=== PATIENT | male | born 1940 | race Caucasian/White ===

== ENCOUNTER 2021-01-11 02:06 | Inpatient (IN) | payer MEDICARE, SELFPAY ==
[2021-01-11] VITALS (34 sets, daily range): BP systolic 79–149; BP diastolic 42–84; PULSE 63–92; RESP 16–22; TEMP 35.7–36.6; O2SAT 91–100; BMI 46.0
--- NOTE | ~2021-01-11 | CT_ITS ---
EXAMINATION: CT chest abdomen wo con EXAM DATE: 01/12/2021 10:15 INDICATION: Hemoptysis and hematemesis. TECHNIQUE: Spiral CT of the chest and abdomen was performed without contrast. Axial, coronal and sa gittal images chest and abdomen were reviewed. Coronal maximum intensity pixel images of chest revie wed. The dose-length product (DLP) for this examination was 1328.02 mGy-cm. The exposure was tailor ed according to patient size (auto mA exposure control), and iterative reconstruction (ASIR) was used as additional dose reduction technique. There is no prior study for comparison. FINDINGS: CHEST: The interventricular septum is perceptible, suggesting patient is anemic. Linear by basilar subsegmental atelectasis. There are no pleural or pericardial effusions. Tracheobronchial tree is patent. There is no mediastinal, hilar or axillary lymphadenopathy. There is no pneumothorax. H eart normal in size. Probable left anterior descending coronary artery stent. ABDOMEN: There is left liver lobe lateral segmental fluid density lesion measuring 2.1 cm, probably c yst The liver, spleen, adrenal glands and pancreas are unremarkable. Probable poorly calcified chol elithiasis versus gallbladder debris. There is absent right kidney. Left kidney is unremarkable. T here is no retroperitoneal lymphadenopathy. There is mild scattered arteriosclerotic disease. The appendix is normal. There is mild to moderate descending colonic colonic diverticulosis. There i s no adjacent inflammatory change to suggest diverticulitis. The stomach and small bowel are unremar kable. There is expected amount of colonic stool. No free intraperitoneal gas. There are no oste oblastic or osteolytic lesions identified. IMPRESSION: 1. Linear by basilar atelectasis. 2. Possible cholelithiasis. 3. Mild to moderate descending colonic diverticulosis. Reviewed, dictated and finalized at location B.
--- NOTE | ~2021-01-11 | XR_ITS ---
XR chest 1V portable DATE: 01/11/2021 03:30 INDICATION: Syncope TECHNIQUE: Portable AP chest on 01/11/2021 at 0324 hours COMPARISON: 05/25/2013 PA and lateral chest FINDINGS: There is mild infiltrate or atelectasis at the lung bases. Normal heart size. Mild aortic unfolding. Pulmonary vascularity appears within upper limits of normal . No pleural effusion or pneumothorax. Diffuse osteopenia. Diffuse idiopathic skeletal hyperostosis of the thoracic spine. IMPRESSION: Mild infiltrate or atelectasis at the lung bases Reviewed, dictated and finalized at location A.
--- NOTE | ~2021-01-11 | XR_ITS ---
XR abdomen NG/feed tube insert DATE: 01/11/2021 10:55 INDICATION: NG tube placement TECHNIQUE: Portable AP views on 01/11/2021 at 1043 and 1044 hours COMPARISON: None FINDINGS: NG tube extends approximately 13 x 5 cm into the body of the in stomach IMPRESSION: . NG tube in body of stomach Reviewed, dictated and finalized at Location A. Reviewed, dictated and finalized at location A.
[2021-01-11 02:47] LABS: Basophils Absolute Auto 0.1 K/mm3 (0.0-0.1); Basophils Percent Auto 0.6 % (0.2-1.2); Eosinophils Absolute Auto 0.1 K/mm3 (0-0.3); Eosinophils Percent Auto 1.4 % (0-4.4); Hematocrit 31.2 % (42.0-52.0); Hemoglobin 10.1 g/dL (14.0-18.0); Immature Granulocyte Absolute 0.02 K/mm3 (0.00-0.031); Immature Granulocyte Percent A 0.2 % (0-0.5); Lymphocytes Absolute Auto 1.99 K/mm3 (0.9-3.2); Lymphocytes Percent Auto 24.7 % (18.3-44.2); Mean Corpuscular HGB Conc 32.4 g/dl (32-36); Mean Corpuscular Hemoglobin 33.8 pg (26-34); Mean Corpuscular Volume 104.3 fl (80-100); Mean Platelet Volume 11.1 fl (7.4-10.4); Monocytes Absolute Auto 0.6 K/mm3 (0.1-0.6); Monocytes Percent Auto 7.8 % (2.6-8.5); Neutrophils Absolute Auto 5.3 K/mm3 (1.3-6.7); Neutrophils Percent Auto 65.3 % (45.5-73.1); Platelet Count Result 197 k/mm3 (150-375); Red Blood Count 2.99 M/mm3 (4.6-6.20); Red Cell Distribution Width 12.6 % (11.5-14.5); White Blood Count 8.1 K/mm3 (4.5-10.0)
--- NOTE | 2021-01-11 02:51 | PC.NURSE ---
Patient had another episode of vomiting. Approx 200ml of dark bloody emesis.
[2021-01-11 02:59] LABS: Alanine Aminotransferase 21 U/L (4-50); Albumin Level 3.7 g/dL (3.5-5.1); Alkaline Phosphatase 52 U/L (38-126); Anion Gap 10 mmol/L (8-16); Aspartate Amino Transferase 27 U/L (17-59); Bilirubin,Total 0.6 mg/dL (0.2-1.3); Blood Urea Nitrogen 46 mg/dL (9-20); Calcium 8.9 mg/dL (8.4-10.2); Carbon Dioxide 27 mmol/L (22-30); Chloride 101 mmol/L (98-107); Estimated CRCL calculation 79 ml/min; Estimated Glomerular Filt Rate > 60; Glucose 120 mg/dL (65-110); Potassium 4.5 mmol/L (3.4-5.0); Sodium 138 mmol/L (137-145)
[2021-01-11 03:13] LABS: Prothrombin Time 13.4 Seconds (11.1-14.7)
--- NOTE | 2021-01-11 03:16 | ECG_ITS ---
Measurements Intervals [place] Rate: 61 P: 5 AK: 152 QRS: 23 QRSD: 94 T: 47 QT: 402 QTc: 405 Interpretive Statements SINUS RHYTHM DELAYED PRECORDIAL R/S TRANSITION LOW QRS VOLTAGE IN PRECORDIAL LEADS BASELINE ARTIFACT- I, III, AVL BORDERLINE ECG Electronically Signed On 01-11-2021 6:45:31 CDT by Shree Lin D.O.
[2021-01-11] MEDS: ONDANSETRON INJ 4 MG/2 ML VIAL IV PUSH (03:35)
[2021-01-11] MEDS: PANTOPRAZOLE SODIUM IV 40 MG VIAL 80 MG IV PUSH (03:35)
[2021-01-11] MEDS: SODIUM CHLORIDE 0.9% IV 1,000 ML 999 ML IV CONT ×3 (03:35→08:42)
--- NOTE | 2021-01-11 04:09 | ED.GIBLEED ---
HPI - GI Bleed General Chief complaint: GI Bleed Stated complaint: GI bleed Time Seen by Provider: 01/11/21 03:08 Source: patient, family and RN notes reviewed Mode of arrival: EMS Limitations: no limitations History of Present Illness HPI Narrative: This is a 80 year old male with history carotid disease and CAD who presents for evaluation of hematemesis. He states he woke up tonight coughing while on his CPAP machine. He then noticed there was blood in his mask. He continued to have nausea and hematemesis. He approximates vomiting 500 mg dark blood with clots. Nursing staff report he has had an episode of coffee ground emesis in ER and he had an associated syncopal episode. He denies chest pain, sob, abdominal pain or melena. He denies previous history of PUD or esophageal varices. He takes aspirin 81 mg and Plavix. Related Data Home Medications Medication Instructions Recorded Confirmed aspirin 81 mg tablet,delayed 81 mg PO DAILY 06/19/20 01/11/21 release clopidogrel 75 mg tablet 75 mg PO DAILY 06/19/20 01/11/21 losartan 50 mg tablet 50 mg PO DAILY 06/19/20 01/11/21 Probiotic PO DAILY 01/11/21 Vitamin B-12 PO DAILY 01/11/21 atorvastatin 40 mg PO DAILY 01/11/21 01/11/21 carvedilol 12.5 mg PO DAILY 01/11/21 01/11/21 cholecalciferol (vitamin D3) 01/11/21 furosemide [Lasix] 20 mg PO DAILY PRN 01/11/21 01/11/21 vitamins A,C,Q-[id number] 1 cap PO BID 01/11/21 01/11/21 [PreserVision AREDS] Allergies Allergy/AdvReac Type Severity Reaction Status Date / Time No Known Allergies Allergy Verified 01/11/21 06:43 Review of Systems Review of Systems: All systems reviewed & are unremarkable except as noted in HPI and below Constitutional: Constitutional: Denies chills, Reports fatigue and Denies fever(s) ENT: Denies epistaxis Cardiovascular: Cardiovascular: Denies chest pain Respiratory: Respiratory: Reports cough and Denies dyspnea Gastrointestinal: Gastrointestinal: Denies abdominal pain, Denies diarrhea, Reports nausea and Denies vomiting PMF Past Medical History Medical History HLD (hyperlipidemia) HTN (hypertension) Myocardial infarct 2013 Obesity Single kidney Left Surgical History Surgical History History of heart artery stent x5, 2013 & 2018 Status post right knee replacement 2018 Family History Family History Mother Diabetes mellitus Father Heart disease Hypertension Chronic obstructive pulmonary disease Heart valve replaced Sibling Cancer of unknown origin Social History Social History (Updated 01/11/21 @ 07:46 by Wanda Ochoa PA-C) Social History: patient does not drink alcohol, smoke or do drugs. He quit smoking about 45 years ago. 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 Power of tax associate attorney is his , Christie. Smoking packs per day: 0.5 Smoking cigarettes per day: 10.0 Years smoked: 15 Smoking pack-years: 7.50 Smoking status: Former smoker Tobacco type: cigarettes and cigars Second hand tobacco smoke exposure: No Smoking end date: 06/20/79 Alcohol intake: never Substance use: never Substance use type: does not use Gender identity (if verbalized by the patient): Male Sexual Orientation (if Verbalized by the Patient): Straight or Heterosexual Spiritual care concerns: No Exam Const: General: alert and ill appearing Orientation/consciousness: patient oriented x3 HENMT: General nose exam: Normal nares present (no sign of epistaxis) Mouth: Yes moist mucous membranes Throat: uvula midline Other: dried blood in mouth Eyes: EOM: EOMs intact bilaterally Resp: Effort & Inspection: normal respiratory effort and no retractions Auscultation: clear to auscultation bilaterally Cardio: Rate: regular r
--- NOTE | 2021-01-11 06:07 | ADMGEN ---
This patient, Mario Hernandez, was admitted to IMU Room 200-01 on 01/11/21 at 0602. Patient/family oriented to hospital policies and general routines including ID bracelet, bed and alarms, visiting hours, pain management, procedures, bathroom and other care routines, personal items, smoking policy, room service/diet, and visiting hours. Information on how to activate the Rapid Response Team has been discussed. Patient/Family are encouraged to report perceived risks to care and to ask questions if they do not understand what they are told or what they should do.
--- NOTE | 2021-01-11 06:37 | PM.IMHP ---
H&P: HPI History of Present Illness Date/Time: 01/11/21 06:37 Chief Complaint: hematemesis Narrative: Pt is a 80-year-old male with a past medical history of coronary artery disease, hyperlipidemia and hypertension who presented emergency room for hematemesis. patient states he was in his normal state of health last night when he had turkey burger, potatoes and some fruit and had a slightly upset stomach. He took some Pepto-Bismol which helped his stomach and he went to bed. When he woke up, he was coughing and was noted to have blood in his CPAP machine. he describes this as bright red blood with clots.he was unsure if it came from his lungs, nose or stomach but called EMS. Once he was in the ambulance, he vomited blood 2-3 times and did not have any coughing at that time. He continues to not have any cough and is fully vaccinated. He said he had some abdominal pain during this but it was not very severe and resolved with the Pepto-Bismol and has not had any since. When he got to the emergency room he threw up blood again. While this was going on, he noted that he was getting sweaty and maybe felt a little lightheaded and the next thing he knew he was waking up. His family at bedside states that he passed out. he says he had no chest pain during this time and has never had issues with passing out in the past. He says that he does not take NSAIDs or steroids, does not drink alcohol and does not have a history of cirrhosis. he has no history of GERD. He has never had an EGD but did have a colonoscopy about 5 years ago somewhere in [place] which he reports as normal. Of mention, last week he was helping someone move and he was caring a box down the stairs and he fell down 3 stairs and landed on his chest and right arm. He has no residual pain from that but he does have some bruising. He does not usually fall at home. During my exam he has no complaints. He denies headaches, chest pain, shortness of breath, fevers, chills, nausea, vomiting or abdominal pain. He takes aspirin Plavix due to his eyes stents placed in his coronary arteries in 2013 and 1 stent in his carotid artery in 2018. Review of Systems Review of Systems: All systems reviewed & are unremarkable except as noted in HPI and below PMFSH Past Medical History Medical History HLD (hyperlipidemia) HTN (hypertension) Myocardial infarct 2013 Obesity Single kidney Left Surgical History Surgical History History of heart artery stent x5, 2013 & 2018 Status post right knee replacement 2018 Family History Family History Mother Diabetes mellitus Father Heart disease Hypertension Chronic obstructive pulmonary disease Heart valve replaced Sibling Cancer of unknown origin Social History Social History (Updated 01/11/21 @ 07:46 by Wanda Ochoa PA-C) Social History: patient does not drink alcohol, smoke or do drugs. He quit smoking about 45 years ago. 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 Power of divorce attorney is his , Christie. Smoking packs per day: 0.5 Smoking cigarettes per day: 10.0 Years smoked: 15 Smoking pack-years: 7.50 Smoking status: Former smoker Tobacco type: cigarettes and cigars Second hand tobacco smoke exposure: No Smoking end date: 06/20/79 Alcohol intake: never Substance use: never Substance use type: does not use Gender identity (if verbalized by the patient): Male Sexual Orientation (if Verbalized by the Patient): Straight or Heterosexual Spiritual care concerns: No Meds Home Medications and Allergies Home Medications Medication Instructions Recorded Confirmed Type aspirin 81 mg tablet,delayed 81 mg PO DAILY 06/19/20 01/11/21 History release clopidogrel 75 mg tabl
[2021-01-11] MEDS: SODIUM CHLORIDE 0.9% IV 1,000 ML 125 ML IV CONT ×3 (06:53→23:23)
--- NOTE | 2021-01-11 08:23 | ECG_ITS ---
Measurements Intervals [place] Rate: 66 P: 56 AK: 160 QRS: 40 QRSD: 93 T: 52 QT: 389 QTc: 409 Interpretive Statements SINUS RHYTHM NORMAL ECG Electronically Signed On 01-11-2021 16:17:18 CDT by Shree Lin D.O.
--- NOTE | 2021-01-11 08:23 | PC.NURSE ---
Called Wanda to notify her patient is dizzy and extremly pale. Last H7H was 0200. Wanda stated she will put orders in for a STAT EKG and STAT H&H
[2021-01-11 08:54] LABS: Hematocrit 23.9 % (42.0-52.0); Hemoglobin 7.4 g/dL (14.0-18.0)
--- NOTE | 2021-01-11 08:58 | PC.NURSE ---
Wanda came to see patient. Patient was extremely diaphoretic, extremely pale and dizzy. Stat EKG was normal, glucose 110, bp 74/50 right arm. Patient stated he was not feeling well at all. placed patient in Trendelenburg and started 1 Liter bolus. Patient color returned and he stated he was feeling much better. Visual Inspector assessed patient. Repeat Blood pressure 108/56.
[2021-01-11] MEDS: SODIUM CHLORIDE 0.9% IV 500 ML 999 ML IV CONT (10:09)
[2021-01-11 10:43] LABS: Hemoglobin 7.2 g/dL (14.0-18.0)
--- NOTE | 2021-01-11 10:46 | WPDANESEPP ---
Anes - Eval Pre Procedure Procedure: Operation Date: 01/11/21 11:00 Proposed Procedures p Esophagogastroduodenoscopy - Thong Juan MD Date/Time: 01/11/21 10:46 Pre Op Diagnosis: Upper GI Hemorrhage Patient Data Age: 80 Gender: M Height: 1.6 m Weight: 118.1 kg Last Vital Signs Temp 36.2 C L 01/11/21 07:12 Pulse 68 01/11/21 07:12 Resp 20 01/11/21 07:12 BP 123/58 L 01/11/21 07:12 Pulse Ox 98 01/11/21 07:12 Allergies Allergy/AdvReac Type Severity Reaction Status Date / Time No Known Allergies Allergy Verified 01/11/21 06:43 Home Medications Medication Instructions Recorded Confirmed Type aspirin 81 mg tablet,delayed 81 mg PO DAILY 06/19/20 01/11/21 History release clopidogrel 75 mg tablet 75 mg PO DAILY 06/19/20 01/11/21 History losartan 50 mg tablet 50 mg PO DAILY 06/19/20 01/11/21 History Probiotic PO DAILY 01/11/21 History Vitamin B-12 PO DAILY 01/11/21 History atorvastatin 40 mg PO DAILY 01/11/21 01/11/21 History carvedilol 12.5 mg PO DAILY 01/11/21 01/11/21 History cholecalciferol (vitamin D3) 01/11/21 History furosemide [Lasix] 20 mg PO DAILY PRN 01/11/21 01/11/21 History vitamins A,C,D-[id number]-qjxnpc 1 cap PO BID 01/11/21 01/11/21 History [PreserVision AREDS] Laboratory Tests 01/11/21 01/11/21 01/11/21 02:41 02:41 02:41 WBC 8.1 K/mm3 K/mm3 (4.5-10.0) RBC 2.99 M/mm3 L M/mm3 (4.6-6.20) Hgb 10.1 g/dL L g/dL (14.0-18.0) Hct 31.2 % L % (42.0-52.0) MCV 104.3 fl H fl (80-100) MCH 33.8 pg pg (26-34) MCHC 32.4 g/dl g/dl (32-36) RDW 12.6 % % (11.5-14.5) Plt Count 197 k/mm3 k/mm3 (150-375) MPV 11.1 fl H fl (7.4-10.4) Immature Gran % (Auto) 0.2 % % (0-0.5) Neut % (Auto) 65.3 % % (45.5-73.1) Lymph % (Auto) 24.7 % % (18.3-44.2) Cross % (Auto) 7.8 % % (2.6-8.5) Eos % (Auto) 1.4 % % (0-4.4) Baso % (Auto) 0.6 % % (0.2-1.2) Lymph # (Auto) 1.99 K/mm3 K/mm3 (0.9-3.2) Cross # (Auto) 0.6 K/mm3 K/mm3 (0.1-0.6) Eos # (Auto) 0.1 K/mm3 K/mm3 (0-0.3) Baso # (Auto) 0.1 K/mm3 K/mm3 (0.0-0.1) Abs Immat Gran (auto) 0.02 K/mm3 K/mm3 (0.00-0.031) Absolute Neuts (auto) 5.3 K/mm3 K/mm3 (1.3-6.7) Absolute Nucleated RBC 0.0 K/mm3 K/mm3 (0.0-0.012) Nucleated RBC % 0.0 % % (0.0-0.2) PT 13.4 Seconds Seconds (11.1-14.7) INR 1.0 APTT 30.0 SECONDS SECONDS (22.3-36.8) Sodium 138 mmol/L mmol/L (137-145) Potassium 4.5 mmol/L mmol/L (3.4-5.0) Chloride 101 mmol/L mmol/L (98-107) Carbon Dioxide 27 mmol/L mmol/L (22-30) Anion Gap 10 mmol/L mmol/L (8-16) BUN 46 mg/dL H mg/dL (9-20) Creatinine 0.80 mg/dL mg/dL (0.7-1.3) Estim Creat Clear Calc 79 ml/min ml/min Estimated GFR > 60 (59 - ) Glucose 120 mg/dL H mg/dL (65-110) Calcium 8.9 mg/dL mg/dL (8.4-10.2) Total Bilirubin 0.6 mg/dL mg/dL (0.2-1.3) AST 27 U/L U/L (17-59) ALT 21 U/L U/L (4-50) Alkaline Phosphatase 52 U/L U/L (38-126) Total Protein 6.0 g/dL L g/dL (6.3-8.2) Albumin 3.7 g/dL g/dL (3.5-5.1) Blood Type Antibody Screen Crossmatch 01/11/21 01/11/21 01/11/21 02:41 08:31 10:25 WBC RBC Hgb 7.4 g/dL L g/dL 7.2 g/dL L g/dL (14.0-18.0) (14.0-18.0) Hct 23.9 % L % 23.0 % L % (42.0-52.0) (42.0-52.0) MCV MCH MCHC RDW Plt Count MPV Immature Gran % (Auto) Neut % (Auto) Lymph % (Auto) Cross % (Auto) Eos % (Auto) Baso %
[2021-01-11 10:50] LABS: Glucose Point of Care 110 mg/dl (65-105)
--- NOTE | 2021-01-11 10:59 | WPDGICN ---
Assessment and Plan Assessment and plan (1) Hematemesis: Code(s): K92.0 - Hematemesis Status: Acute Assessment and Plan: symptomatic anemia with active upper gib and patient passing out at home. on iv fluid resuscitation, iv protonix drip and will get blood transfusion will proceed with urgent EGD hold plavix and aspirin (2) GIB (gastrointestinal bleeding): Code(s): K92.2 - Gastrointestinal hemorrhage, unspecified Status: Acute Assessment and Plan: urgent egd, continue with medical support (3) Acute blood loss anemia: Code(s): D62 - Acute posthemorrhagic anemia Status: Acute Assessment and Plan: will get blood transfusion because drop in hb and syncope on presentation (4) Syncope and collapse: Code(s): R55 - Syncope and collapse Status: Acute Assessment and Plan: most likely from gib, monitor in floor (5) CAD (coronary artery disease): Code(s): I25.10 - Atherosclerotic heart disease of [place] coronary artery without angina pectoris Status: Acute (6) ANNALISA (obstructive sleep apnea): Code(s): G47.33 - Obstructive sleep apnea (adult) (pediatric) Status: Acute GI Consult Note Consult date/time: 01/11/21 10:59 Reason for consult: hematemesis, acute blood loss anemia HPI: Mario Hernandez is a 80 year old male with history of coronary artery disease on plavix and aspirin, hyperlipidemia, hypertension and ANNALISA who presented to the emergency room for new onset of hematemesis. Yesterday he had slightly upset stomach after eating then took some Pepto-Bismol and he went to bed. Then woke up in the middle of night while using his CPAP because nausea with vomiting dark material and bright red blood up to 4 times, never had GIB. He passed out at home. No melena. Never had EGD and last colonoscopy 5 years ago. On arrival hb 10.1 then dropped to 7.4, BUN 46, normal platelets and liver enzymes. He is pale and diaphoretic. NGT was placed. Started on iv protonix and he is npo. Review of Systems Constitutional: Constitutional: Reports lethargy Eyes: Eyes: Denies blurry vision ENT: Reports Normal hearing present Cardiovascular: Cardiovascular: Denies chest pain Respiratory: Respiratory: Denies cough Gastrointestinal: Gastrointestinal: Reports nausea, Reports vomiting and Reports hematemesis Genitourinary: Genitourinary: Denies dysuria Musculoskeletal: Musculoskeletal: Denies neck pain Integumentary/Breasts: Skin/Breast: Denies dry skin Neurologic: Denies numbness Psychiatric: Psychiatric: Denies confusion [facility] Past Medical History Medical History (Updated 01/11/21 @ 11:13 by Thnog Juan MD) Acute blood loss anemia GIB (gastrointestinal bleeding) HLD (hyperlipidemia) HTN (hypertension) Myocardial infarct 2013 Obesity Single kidney Left Surgical History Surgical History History of heart artery stent x5, 2013 & 2018 Status post right knee replacement 2018 Family History Family History Mother Diabetes mellitus Father Heart disease Hypertension Chronic obstructive pulmonary disease Heart valve replaced Sibling Cancer of unknown origin Social History Social History (Updated 01/11/21 @ 07:46 by Wanda Ochoa PA-C) Social History: patient does not drink alcohol, smoke or do drugs. He quit smoking about 45 years ago. 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 Power of trial attorney is his , Christie. Smoking packs per day: 0.5 Smoking cigarettes per day: 10.0 Years smoked: 15 Smoking pack-years: 7.50 Smoking status: Former smoker Tobacco type: cigarettes and cigars Second hand tobacco smoke exposure: No Smoking end date: 06/20/79 Alcohol intake: never Substance use: never Substance use type: does not use
[2021-01-11] MEDS: LACTATED RINGERS 1,000 ML 150 ML IV CONT (11:20)
--- NOTE | 2021-01-11 11:50 | PCPTNOTE ---
Pt off of medical floor at time of attempted PT eval. Will try again later.
--- NOTE | 2021-01-11 11:57 | PCOTNOTE ---
Attempted for occupational therapy, patient is currently off the unit at this time. will follow and attempt at later time.
--- NOTE | 2021-01-11 12:52 | PCPTNOTE ---
Checked back in p.m. pt still off of floor. Checked with floor law secretary - down for a procedure and going to ICU afterwards. Will need updated orders if he goes to ICU.
[2021-01-11] MEDS: EPINEPHrine INJ 1 MG/10 ML SYRINGE IV PUSH (12:56)
--- NOTE | 2021-01-11 12:57 | PCOTNOTE ---
Attempted OT evaluation, patient is still off the unit for a procedure, may transfer to ICU after procedure. Will need updated orders if transferred to ICU.
[2021-01-11] MEDS: TUBING, BLOOD PLUM PUMP TUBING 1 EACH XX ×2 (13:00→15:45)
[2021-01-11] MEDS: SODIUM CHLORIDE 0.9% IV 250 ML 30 ML IV CONT (15:45)
[2021-01-11 18:05] LABS: Hematocrit 27.1 % (42.0-52.0); Hemoglobin 8.9 g/dL (14.0-18.0)
[2021-01-11 21:51] LABS: Hematocrit 25.5 % (42.0-52.0); Hemoglobin 8.3 g/dL (14.0-18.0)
[2021-01-11] MEDS: METOCLOPRAMIDE HCL INJ 10 MG/2 ML VIAL 5 MG IV PUSH (23:17)
[2021-01-12] VITALS (15 sets, daily range): BP systolic 105–144; BP diastolic 41–106; PULSE 64–84; RESP 18–23; TEMP 36.1–36.7; O2SAT 94–100
[2021-01-12 01:00] LABS: Hematocrit 25.7 % (42.0-52.0); Hemoglobin 8.1 g/dL (14.0-18.0)
[2021-01-12] MEDS: METOCLOPRAMIDE HCL INJ 10 MG/2 ML VIAL 5 MG IV PUSH (05:40)
[2021-01-12 05:42] LABS: Hematocrit 23.2 % (42.0-52.0); Hemoglobin 7.5 g/dL (14.0-18.0)
[2021-01-12 05:51] LABS: Alanine Aminotransferase 15 U/L (4-50); Albumin Level 2.6 g/dL (3.5-5.1); Alkaline Phosphatase 39 U/L (38-126); Anion Gap 4 mmol/L (8-16); Aspartate Amino Transferase 21 U/L (17-59); Bilirubin,Total 0.5 mg/dL (0.2-1.3); Blood Urea Nitrogen 37 mg/dL (9-20); Calcium 7.6 mg/dL (8.4-10.2); Carbon Dioxide 24 mmol/L (22-30); Chloride 109 mmol/L (98-107); Estimated CRCL calculation 76 ml/min; Estimated Glomerular Filt Rate > 60; Glucose 101 mg/dL (65-110); Potassium 3.9 mmol/L (3.4-5.0); Sodium 137 mmol/L (137-145)
--- NOTE | 2021-01-12 08:30 | PCPTNOTE ---
Attempted PT eval. Pt is having EGD done today and RN stated to hold therapy. Will try again at later time.
--- NOTE | 2021-01-12 08:33 | PCOTNOTE ---
Per RN, hold this AM due to medical status and procedure. Will attempt at later time as medically appropriate
[2021-01-12 08:55] LABS: Hematocrit 22.9 % (42.0-52.0); Hemoglobin 7.4 g/dL (14.0-18.0)
[2021-01-12] MEDS: SODIUM CHLORIDE 0.9% IV 1,000 ML 125 ML IV CONT (09:16)
[2021-01-12 09:18] LABS: INR 1.1; Prothrombin Time 14.1 Seconds (11.1-14.7)
[2021-01-12 09:19] LABS: Partial Thromboplastin Time 33.7 SECONDS (22.3-36.8)
--- NOTE | 2021-01-12 10:08 | PM.IMPN ---
Progress Note: A&P Assessment and Plan (1) Hematemesis: Code(s): K92.0 - Hematemesis Status: Acute Assessment and Plan: - After the initial exam yesterday the patient deteriorated. He underwent an emergent EGD yesterday which showed significant bleeding and a large amount of clotted blood as well as red blood in the gastric cardia and in the fundus. This blood was suctioned and removed but visibility was poor due to the amount of blood. The GI doctor, Dr. Guevara did inject epinephrine to the area to help slow down the bleeding and plan to do another EGD today -01/11/21 the patient's hemoglobin was down to 7.2, blood pressure systolic in the 70s, and was diaphoretic. He received IV bolus of fluids as well as 2 units of blood - today he has a lot of color and his hemoglobin has been stable last being 7.4 with no symptoms -Continue PPI, hold aspirin and plavix -No hx of PUD, NSAID use or esophageal varices -Spoke with Carlos, alex transfer at this time as they will only accept him if there is a procedure they can do that we cannot. Will await new EGD and CT scan. (2) CAD (coronary artery disease): Code(s): I25.10 - Atherosclerotic heart disease of [place] coronary artery without angina pectoris Status: Acute Assessment and Plan: With stenting in 2012 -hold aspirin and plavix for now but restart when possible -no CP -EKG reviewed, no abnormalities (3) HLD (hyperlipidemia): Code(s): E78.5 - Hyperlipidemia, unspecified Status: Acute Assessment and Plan: Continue atorvastatin -s/p stenting to the carotids (4) ANNALISA (obstructive sleep apnea): Code(s): G47.33 - Obstructive sleep apnea (adult) (pediatric) Status: Acute Assessment and Plan: Continue cpap as long as hematemesis has resolved. (5) Episode of syncope: Code(s): R55 - Syncope and collapse Status: Acute Assessment and Plan: Noted in the ER when he was vomiting -could be vasovagal, pt had pre-syncopal symptoms or from blood loss -no ekg abnormalities -continue tele (6) Acute blood loss anemia: Code(s): D62 - Acute posthemorrhagic anemia Status: Acute Assessment and Plan: As above s/p 2 units o blood 01/11/21 (7) GIB (gastrointestinal bleeding): Code(s): K92.2 - Gastrointestinal hemorrhage, unspecified Status: Acute Assessment and Plan: As above Additional Plan Spoke with DaughterSelina about plan of care today 01/12/21 and she is in agreement with plan. All questions answered Time Spent With Patient Time with patient: 25 - 35 minutes Subjective Date/time seen: 01/12/21 10:08 Interval history: Pt is a 80-year-old male here for GI bleed who was seen today. Patient states he feels much better compared to yesterday. He has no lightheadedness, dizziness, chest pain or shortness of breath. He still feels a bit weak and has an eaten but overall doing much better. He has not had any further hematemesis and no reports of dark stool. Review of Systems Review of Systems: All systems reviewed & are unremarkable except as noted in HPI and below Exam Narrative: Exam Narrative: General: overweight patient resting comfortably in bed in no acute distress HEENT: Normocephalic, atraumatic, PERRL, Sclerae anicteric, oral mucosa moist. evidence of dried blood to the nares Neck: Supple Resp: CTA Heart: RRR. telemetry with normal sinus rhythm at a rate of 75 Abd: Soft, nontender. No pain to palpation. Positive bowel sounds Skin: Warm and dry. bruising to the right chest with bruising to the right arm as well. No pain to the ribs on the right Extremities: Chronic non-pitting swelling that is unchanged (according to pt). no pain or erythema Neuro: Alert and Oriented x4 . CN 2-12 intact. No focal neurological deficits. Objective Data Vital Signs Vital Signs: Vital Signs - 24 hr 01/11/21 11:20 12/19
--- NOTE | 2021-01-12 10:57 | WPDANESEPPF ---
Anes - Initial Pre Proc Eval Procedure: Operation Date: 01/11/21 11:00 Proposed Procedures p Esophagogastroduodenoscopy - Thong Juan MD Operation Date: 01/12/21 11:45 Proposed Procedures p Esophagogastroduodenoscopy - Thong Juan MD Date/Time: 01/12/21 10:57 Surgeon: Wanda Ochoa PA-C Pre Op Diagnosis: Upper GI Hemorrhage Patient Data Age: 80 Gender: M Height: 1.6 m Weight: 118 kg Last Vital Signs Temp 36.7 C 01/12/21 08:00 Pulse 76 01/12/21 08:00 Resp 18 01/12/21 08:00 BP 120/43 L 01/12/21 08:00 Pulse Ox 97 01/12/21 08:00 Allergies Allergy/AdvReac Type Severity Reaction Status Date / Time No Known Allergies Allergy Verified 01/12/21 10:57 Home Medications Medication Instructions Recorded Confirmed Type aspirin 81 mg tablet,delayed 81 mg PO DAILY 06/19/20 01/11/21 History release clopidogrel 75 mg tablet 75 mg PO DAILY 06/19/20 01/11/21 History losartan 50 mg tablet 50 mg PO DAILY 06/19/20 01/11/21 History Vitamin B-12 500 mcg PO DAILY 01/11/21 01/11/21 History atorvastatin 40 mg PO DAILY 01/11/21 01/11/21 History carvedilol 12.5 mg PO DAILY 01/11/21 01/11/21 History cholecalciferol (vitamin D3) 1,000 unit PO DAILY 01/11/21 01/11/21 History furosemide [Lasix] 20 mg PO DAILY PRN 01/11/21 01/11/21 History vitamins A,C,Y-foiw-eiipol 1 cap PO BID 01/11/21 01/11/21 History [PreserVision AREDS] Laboratory Tests 01/11/21 01/11/21 01/11/21 02:41 17:54 21:46 Hgb 8.9 g/dL L g/dL 8.3 g/dL L g/dL (14.0-18.0) (14.0-18.0) Hct 27.1 % L % 25.5 % L % (42.0-52.0) (42.0-52.0) PT INR APTT Sodium Potassium Chloride Carbon Dioxide Anion Gap BUN Creatinine Estim Creat Clear Calc Estimated GFR Glucose Calcium Total Bilirubin AST ALT Alkaline Phosphatase Total Protein Albumin Vitamin B12 Folate Blood Type O Negative Antibody Screen Negative Crossmatch See Detail 01/12/21 01/12/21 01/12/21 00:49 04:13 04:14 Hgb 8.1 g/dL L g/dL 7.5 g/dL L g/dL (14.0-18.0) (14.0-18.0) Hct 25.7 % L % 23.2 % L % (42.0-52.0) (42.0-52.0) PT INR APTT Sodium 137 mmol/L mmol/L (137-145) Potassium 3.9 mmol/L mmol/L (3.4-5.0) Chloride 109 mmol/L H mmol/L (98-107) Carbon Dioxide 24 mmol/L mmol/L (22-30) Anion Gap 4 mmol/L L mmol/L (8-16) BUN 37 mg/dL H mg/dL (9-20) Creatinine 0.80 mg/dL mg/dL (0.7-1.3) Estim Creat Clear Calc 76 ml/min ml/min Estimated GFR > 60 (59 - ) Glucose 101 mg/dL mg/dL (65-110) Calcium 7.6 mg/dL L mg/dL (8.4-10.2) Total Bilirubin 0.5 mg/dL mg/dL (0.2-1.3) AST 21 U/L U/L (17-59) ALT 15 U/L U/L (4-50) Alkaline Phosphatase 39 U/L U/L (38-126) Total Protein 5.0 g/dL L g/dL (6.3-8.2) Albumin 2.6 g/dL L g/dL (3.5-5.1) Vitamin B12 Pending Folate Pending Blood Type Antibody Screen Crossmatch 01/12/21 01/12/21 08:26 08:26 Hgb 7.4 g/dL L g/dL (14.0-18.0) Hct 22.9 % L % (42.0-52.0) PT 14.1 Seconds Seconds (11.1-14.7) INR 1.1 APTT 33.7 SECONDS SECONDS (22.3-36.8) Sodium Potassium Chloride Carbon Dioxide Anion Gap BUN Creatinine Estim Creat Clear Calc Estimated GFR Glucose Calcium Total Bilirubin AST ALT Alkaline Phosphatase
[2021-01-12 13:57] LABS: Hematocrit 22.7 % (42.0-52.0); Hemoglobin 7.3 g/dL (14.0-18.0)
--- NOTE | 2021-01-12 15:30 | WPDANESPN ---
Anes - Prog Note Post-Op Date/Time: 01/12/21 15:30 Cardiovascular status: normal Respiratory status: normal Airway patency: baseline Mental status: baseline Post-Op hydration status: normal Vital Signs: Last Vital Signs Temp 36.2 C L 01/12/21 12:30 Pulse 75 01/12/21 14:00 Resp 18 01/12/21 12:30 BP 144/62 H 01/12/21 12:30 Pulse Ox 98 01/12/21 12:30 Pain Score (VAS): 0 I/O: Intake & Output 01/11/21 01/12/21 01/12/21 23:59 07:59 15:59 Intake Total 1350 1500 0 Output Total 875 1550 550 Balance 475 -50 -550 Laboratory Tests 01/12/21 13:46 01/12/21 04:13 01/11/21 01/11/21 01/11/21 02:41 17:54 21:46 Hgb 8.9 L 8.3 L Hct 27.1 L 25.5 L PT INR APTT Sodium Potassium Chloride Carbon Dioxide Anion Gap BUN Creatinine Estim Creat Clear Calc Estimated GFR Glucose Calcium Total Bilirubin AST ALT Alkaline Phosphatase Total Protein Albumin Vitamin B12 Folate Blood Type O Negative Antibody Screen Negative Crossmatch See Detail 01/12/21 01/12/21 01/12/21 00:49 04:13 04:14 Hgb 8.1 L 7.5 L Hct 25.7 L 23.2 L PT INR APTT Sodium 137 Potassium 3.9 Chloride 109 H Carbon Dioxide 24 Anion Gap 4 L BUN 37 H Creatinine 0.80 Estim Creat Clear Calc 76 Estimated GFR > 60 Glucose 101 Calcium 7.6 L Total Bilirubin 0.5 AST 21 ALT 15 Alkaline Phosphatase 39 Total Protein 5.0 L Albumin 2.6 L Vitamin B12 314.0 Folate 15.0 Blood Type Antibody Screen Crossmatch 01/12/21 01/12/21 01/12/21 08:26 08:26 13:46 Hgb 7.4 L 7.3 L Hct 22.9 L 22.7 L PT 14.1 INR 1.1 APTT 33.7 Sodium Potassium Chloride Carbon Dioxide Anion Gap BUN Creatinine Estim Creat Clear Calc Estimated GFR Glucose Calcium Total Bilirubin AST ALT Alkaline Phosphatase Total Protein Albumin Vitamin B12 Folate Blood Type Antibody Screen Crossmatch Post-procedural complaints: none Patient Feedback: Patient satisfied with anesthetic care.
[2021-01-12] MEDS: carvediloL 12.5 MG TABLET PO (15:54)
[2021-01-12] MEDS: ATORVASTATIN 40 MG TABLET PO (15:55)
[2021-01-12] MEDS: SODIUM CHLORIDE 0.9% IV 1,000 ML 150 ML IV CONT (16:51)
[2021-01-12 20:24] LABS: Hematocrit 21.8 % (42.0-52.0)
[2021-01-12] MEDS: PANTOPRAZOLE SODIUM IV 40 MG VIAL IV PUSH (21:33)
[2021-01-13] VITALS (17 sets, daily range): BP systolic 102–159; BP diastolic 25–112; PULSE 62–85; RESP 18–22; TEMP 35.9–36.7; O2SAT 96–100
[2021-01-13] MEDS: SODIUM CHLORIDE 0.9% IV 1,000 ML 150 ML IV CONT ×2 (01:03→08:34)
[2021-01-13 02:00] LABS: Hematocrit 22.1 % (42.0-52.0); Immature Platelet Fraction Pct 7.5 % (0.9-11.2); Mean Corpuscular HGB Conc 31.7 g/dl (32-36); Mean Corpuscular Hemoglobin 31.4 pg (26-34); Mean Corpuscular Volume 99.1 fl (80-100); Mean Platelet Volume 11.3 fl (7.4-10.4); Platelet Count Result 132 k/mm3 (150-375); Red Blood Count 2.23 M/mm3 (4.6-6.20); Red Cell Distribution Width 17.5 % (11.5-14.5); White Blood Count 9.9 K/mm3 (4.5-10.0)
[2021-01-13 02:40] LABS: Alanine Aminotransferase 15 U/L (4-50); Albumin Level 2.7 g/dL (3.5-5.1); Alkaline Phosphatase 39 U/L (38-126); Anion Gap 5 mmol/L (8-16); Aspartate Amino Transferase 24 U/L (17-59); Bilirubin,Total 0.7 mg/dL (0.2-1.3); Blood Urea Nitrogen 19 mg/dL (9-20); Calcium 7.8 mg/dL (8.4-10.2); Carbon Dioxide 25 mmol/L (22-30); Chloride 107 mmol/L (98-107); Estimated CRCL calculation 86 ml/min; Estimated Glomerular Filt Rate > 60; Glucose 93 mg/dL (65-110); Potassium 3.8 mmol/L (3.4-5.0); Sodium 137 mmol/L (137-145)
--- NOTE | 2021-01-13 07:52 | WPDGIPROGNO ---
Progress Note: A&P Assessment and Plan (1) Acute blood loss anemia: Code(s): D62 - Acute posthemorrhagic anemia Status: Acute Assessment and Plan: his hemoglobin is down to 7 this morning. he obviously lost quite a bit of blood, but there was no active bleeding at the time of his EGD yesterday. We should check 1 more to make sure it is not still dropping. If stable he could be discharged today (2) Dorothy-Valladares tear: Code(s): K22.6 - Gastro-esophageal laceration-hemorrhage syndrome Status: Acute Assessment and Plan: Endoscopic intervention was not necessary because with shallow. Therefore he should do fine as long as he does not begin vomiting again in the next couple of days. He states he was told to hold Plavix for 7 more days. I asked him to run at by his primary care physician also Subjective Date/time seen: 01/13/21 07:52 he had 1 black stool yesterday. None so far today. He denies abdominal pain. He is tolerating his regular diet. He is questioning how he developed gastric ulcers. I explained him that it could be from his aspirin tablets which she should always take with food. H pylori was negative. A Dorothy-Valladares tear was found which is most likely the source of his bleeding. He cannot recall if he was retching before he saw blood in his CPAP mask or not, but he does remember he was vomiting. Review of Systems Review of Systems: All systems reviewed & are unremarkable except as noted in HPI and below Exam Const: General: No confusion Nutritional Appearance: obese Orientation/consciousness: No confusion Other: feeling sick, diaphoretic. NGT in place HENMT: General nose exam: Normal nares present Eyes: Sclera: sclerae normal Neck: Neck: supple Resp: Auscultation: clear to auscultation bilaterally Cardio: Rate: regular rate GI: Inspection: obesity Auscultation: normal bowel sounds Skin: Other: pale Neuro: Cranial nerves: Yes Normal hearing present Speech: normal speech Motor exam (neuro): Normal motor muscle tone present throughout Extrem: General: normal to inspection Psych: Mental Status: mental status grossly normal Objective Data Vital Signs Vital Signs: Vital Signs - 24 hr 01/12/21 08:00 01/12/21 10:00 01/12/21 11:38 Temperature 36.7 C Pulse Rate 76 72 71 Respiratory Rate 18 23 H Blood Pressure 120/43 L 124/53 L Pulse Oximetry 97 96 01/12/21 11:48 01/12/21 11:58 01/12/21 12:30 Temperature 36.2 C L Pulse Rate 68 69 71 Respiratory Rate 20 18 18 Blood Pressure 125/44 L 130/49 L 144/62 H Pulse Oximetry 94 96 98 01/12/21 14:00 01/12/21 16:00 01/12/21 18:00 Temperature 36.1 C L Pulse Rate 75 72 74 Respiratory Rate 18 Blood Pressure Pulse Oximetry 100 01/12/21 20:00 01/12/21 22:00 01/13/21 00:00 Temperature 36.7 C 36.6 C Pulse Rate 73 64 75 Respiratory Rate 20 20 Blood Pressure 134/106 H 119/45 L Pulse Oximetry 96 96 01/13/21 02:00 01/13/21 04:00 01/13/21 06:00 Temperature 36.4 C Pulse Rate 68 73 85 Respiratory Rate 18 Blood Pressure 106/47 L Pulse Oximetry 98 Intake/Output Intake/Output: Intake & Output 01/10/21 01/11/21 01/12/21 01/13/21 23:59 23:59 23:59 23:59 Intake Total 4800 5060 850 Output Total 875 3000 650 Balance 3925 2060 200 Meds/Results Medications: Active Medications Generic Name Dose Route Start Last Admin Trade Name Freq PRN Reason Stop Dose Admin Atorvastatin Calcium 40 mg 01/11/21 09:00 01/12/21 15:55 Atorvastatin 40 Mg Tablet PO 40 mg DAILY LUTHER Administration Carvedilol 12.5 mg 01/11/21 09:00 01/12/21 15:54 Carvedilol 12.5 Mg Tablet PO 12.5 mg DAILY LUTHER Administration Furosemide 20 mg 01/11/21 07:53 Furosemide 20 Mg Tablet PO DAILY PRN .leg swelling Sodium Chloride 1,000 mls @ 150 mls/hr 01/11/21 04:30 01/13/21 05:53 Normal Saline Iv IV CONT 150 mls/hr .[id number] LUTHER Infusion Sodium C
[2021-01-13] MEDS: SODIUM CHLORIDE 0.9% IV 250 ML 30 ML IV CONT (09:24)
[2021-01-13] MEDS: TUBING, BLOOD PLUM PUMP TUBING 1 EACH XX (09:25)
[2021-01-13] MEDS: FUROSEMIDE 20 MG TABLET PO (09:25)
[2021-01-13] MEDS: PANTOPRAZOLE SODIUM IV 40 MG VIAL IV PUSH ×2 (09:25→20:35)
[2021-01-13] MEDS: carvediloL 12.5 MG TABLET PO (09:59)
[2021-01-13] MEDS: ATORVASTATIN 40 MG TABLET PO (09:59)
--- NOTE | 2021-01-13 12:54 | PM.IMPN ---
Progress Note: A&P Assessment and Plan (1) Hematemesis: Code(s): K92.0 - Hematemesis Status: Acute Assessment and Plan: -EGD 01/11/21 which showed significant bleeding and a large amount of clotted blood as well as red blood in the gastric cardia and in the fundus. This blood was suctioned and removed but visibility was poor due to the amount of blood. The GI doctor, Dr. Guevara did inject epinephrine to the area to help slow down the bleeding. Repeat EGD 01/12/21 showed a small dillon-bain tear that was not bleeding with moderate gastritis with shallow small ulcers. -hgb today 7.0 today, 1 additional PRBC was ordered - today he has a lot of color with no CP or SOB -Continue PPI, hold aspirin and plavix -No hx of PUD, NSAID use or esophageal varices -Spoke with [facility], no transfer at this time as they will only accept him if there is a procedure they can do that we cannot. (2) Fluid overload: Code(s): E87.70 - Fluid overload, unspecified Status: Acute Assessment and Plan: Pt is +[phone] so far this stay due to IV fluids and blood -no that he is stable and bp has improved, will stop fluids and start lasix. he takes this at home PRN but will likely need larger doses for now -Pt only has one kidney so I will be cautious of his diuresis and monitor this closely. (3) CAD (coronary artery disease): Code(s): I25.10 - Atherosclerotic heart disease of [place] coronary artery without angina pectoris Status: Acute Assessment and Plan: With stenting in 2012 -hold aspirin and plavix for now but restart when possible -no CP -EKG reviewed, no abnormalities (4) HLD (hyperlipidemia): Code(s): E78.5 - Hyperlipidemia, unspecified Status: Acute Assessment and Plan: Continue atorvastatin -s/p stenting to the carotids (5) ANNALISA (obstructive sleep apnea): Code(s): G47.33 - Obstructive sleep apnea (adult) (pediatric) Status: Acute Assessment and Plan: Continue cpap as long as hematemesis has resolved. (6) Episode of syncope: Code(s): R55 - Syncope and collapse Status: Acute Assessment and Plan: Noted in the ER when he was vomiting -could be vasovagal, pt had pre-syncopal symptoms or from blood loss -no ekg abnormalities (7) Acute blood loss anemia: Code(s): D62 - Acute posthemorrhagic anemia Status: Acute Assessment and Plan: As above s/p 2 units o blood 01/11/21 and another 1 unit ordered for 01/13/21 (8) GIB (gastrointestinal bleeding): Code(s): K92.2 - Gastrointestinal hemorrhage, unspecified Status: Acute Assessment and Plan: As above (9) Dillon-Bain tear: Code(s): K22.6 - Gastro-esophageal laceration-hemorrhage syndrome Status: Acute Assessment and Plan: as above Subjective Date/time seen: 01/13/21 12:54 Interval history: Pt is a 80-year-old male here for GI bleed who was seen today. Patient states he is feeling great but feels 'puffy' in his upper extremities. He has no lightheadedness, dizziness, chest pain, abdominal pain or shortness of breath. He has been walking to and from the bathroom and doing well without NORTON or SOB. He is eating and drinking well. He has not had any further hematemesis. He continues to have dark stool. Exam Narrative: Exam Narrative: General: overweight patient resting comfortably in bed in no acute distress HEENT: Normocephalic, atraumatic, PERRL, Sclerae anicteric, oral mucosa moist. Neck: Supple Resp: CTA Heart: RRR. telemetry with normal sinus rhythm at a rate of 78 Abd: Soft, nontender. No pain to palpation. Positive bowel sounds Skin: Warm and dry. bruising to the right chest with bruising to the right arm as well. No pain to the ribs on the right Extremities: Edema to the UE +++. He says his LE swelling is chronic and there has been no change to that. Neuro: Alert an
[2021-01-13] MEDS: FUROSEMIDE INJ 40 MG/4 ML VIAL IV PUSH (13:45)
[2021-01-13 16:12] LABS: Hematocrit 26.4 % (42.0-52.0); Hemoglobin 8.6 g/dL (14.0-18.0)
--- NOTE | 2021-01-13 18:58 | PC.NURSE ---
Pt changed to med surg at 1500 on 01/13/21
--- NOTE | 2021-01-13 18:59 | PC.NURSE ---
This patient, Mario Hernandez, was received from IMU on 01/13/21 at 1859. Patient/family oriented to unit policies and routines
[2021-01-14 05:08] VITALS: BP 124/48; PULSE 65; RESP 18; TEMP 36.2; O2SAT 97
[2021-01-14 06:03] LABS: Hemoglobin 7.9 g/dL (14.0-18.0)
[2021-01-14 06:22] LABS: Anion Gap 4 mmol/L (8-16); Blood Urea Nitrogen 13 mg/dL (9-20); Calcium 8.1 mg/dL (8.4-10.2); Carbon Dioxide 28 mmol/L (22-30); Chloride 106 mmol/L (98-107); Estimated CRCL calculation 79 ml/min; Estimated Glomerular Filt Rate > 60; Glucose 91 mg/dL (65-110); Potassium 3.1 mmol/L (3.4-5.0); Sodium 138 mmol/L (137-145)
--- NOTE | 2021-01-14 07:22 | WPDGIPROGNO ---
Progress Note: A&P Assessment and Plan (1) Acute blood loss anemia: Code(s): D62 - Acute posthemorrhagic anemia Status: Acute Assessment and Plan: he received 1 more unit of blood yesterday. His hemoglobin johnie to 8.6. Now it is 7.9 (2) Dorothy-Valladares tear: Code(s): K22.6 - Gastro-esophageal laceration-hemorrhage syndrome Status: Acute Assessment and Plan: no signs of further bleeding. He should do well. (3) Fluid overload: Code(s): E87.70 - Fluid overload, unspecified Status: Acute Assessment and Plan: This has been resolved. He should be able to be discharged this morning Subjective Date/time seen: 01/14/21 07:22 this morning he feels good. He is no longer lightheaded. He had little stool yesterday that was dark. He has had no emesis. Denies abdominal pain. Review of Systems Review of Systems: All systems reviewed & are unremarkable except as noted in HPI and below Exam GI: Inspection: obesity GI Palp: No abdominal tenderness and No Tenderness to palpation present (GI) Objective Data Vital Signs Vital Signs: Vital Signs - 24 hr 01/13/21 08:00 01/13/21 09:22 01/13/21 09:38 Temperature 36.4 C 36.1 C L 35.9 C L Pulse Rate 65 70 65 Respiratory Rate 20 20 20 Blood Pressure 115/41 L 102/45 L 118/25 L Pulse Oximetry 99 97 100 01/13/21 10:00 01/13/21 10:38 01/13/21 11:38 Temperature 36.7 C 36.3 C L Pulse Rate 72 69 78 Respiratory Rate 20 22 H Blood Pressure 130/47 L 159/112 H Pulse Oximetry 100 98 01/13/21 11:39 01/13/21 12:00 01/13/21 12:38 Temperature 36.3 C L 36.2 C L Pulse Rate 78 64 63 Respiratory Rate 22 H 20 Blood Pressure 112/56 L 133/45 L Pulse Oximetry 100 100 01/13/21 13:20 01/13/21 14:00 01/13/21 16:00 Temperature 36.2 C L 36.5 C Pulse Rate 64 62 68 Respiratory Rate 20 20 Blood Pressure 113/37 L 129/43 L Pulse Oximetry 100 100 01/13/21 20:45 07/28/21 05:08 Temperature 36.1 C L 36.2 C L Pulse Rate 67 65 Respiratory Rate 18 18 Blood Pressure 144/47 H 124/48 L Pulse Oximetry 98 97 Intake/Output Intake/Output: Intake & Output 01/11/21 01/12/21 01/13/21 01/14/21 23:59 23:59 23:59 23:59 Intake Total 4800 5060 3580 250 Output Total 875 3000 2560 700 Balance 3925 2060 1020 -450 Meds/Results Medications: Active Medications Generic Name Dose Route Start Last Admin Trade Name Freq PRN Reason Stop Dose Admin Atorvastatin Calcium 40 mg 01/11/21 09:00 01/13/21 09:59 Atorvastatin 40 Mg Tablet PO 40 mg DAILY LUTHER Administration Carvedilol 12.5 mg 01/11/21 09:00 01/13/21 09:59 Carvedilol 12.5 Mg Tablet PO 12.5 mg DAILY LUTHER Administration Furosemide 40 mg 01/14/21 09:00 Furosemide Inj 40 Mg/4 Ml Vial IV PUSH DAILY LUTHER Ondansetron HCl 4 mg 01/11/21 04:28 Ondansetron Inj 4 Mg/2 Ml Vial IV PUSH Q4H PRN Nausea Pantoprazole Sodium 40 mg 01/12/21 21:00 01/13/21 20:35 Pantoprazole Sodium Iv 40 Mg Vial IV PUSH 40 mg Q12HR LUTHER Administration Radiology Results: ITS Impressions Chest X-Ray 01/11/21 09:14 IMPRESSION: Mild infiltrate or atelectasis at the lung bases Abdomen X-Ray 01/11/21 11:05 IMPRESSION: . NG tube in body of stomach Chest/Abdomen CT 01/12/21 10:15 IMPRESSION: 1. Linear by basilar atelectasis. 2. Possible cholelithiasis. 3. Mild to moderate descending colonic diverticulosis. Labs Labs: Laboratory Results - last 24 hr 01/11/21 01/13/21 01/14/21 02:41 15:51 05:32 Hgb 8.6 L 7.9 L Hct 26.4 L 24.0 L Sodium Potassium Chloride Carbon Dioxide Anion Gap BUN Creatinine Estim Creat Clear Calc Estimated GFR Glucose Calcium Blood Type O Negative Antibody Screen Negative Crossmatch See Detail 01/14/21 05:32 Hgb Hct Sodium 138 Potassium 3.1 L Chloride 106 Carbon Dioxide 28 Anion Gap 4 L BUN 13 D Creati
[2021-01-14 08:27] VITALS: PULSE 65
[2021-01-14] MEDS: carvediloL 12.5 MG TABLET PO (08:27)
[2021-01-14] MEDS: ATORVASTATIN 40 MG TABLET PO (08:28)
[2021-01-14] MEDS: FUROSEMIDE INJ 40 MG/4 ML VIAL IV PUSH (08:28)
[2021-01-14] MEDS: PANTOPRAZOLE SODIUM IV 40 MG VIAL IV PUSH (08:28)
[2021-01-14] MEDS: POTASSIUM CHLORIDE 20 MEQ TABLET 40 MEQ PO (08:28)
--- NOTE | 2021-01-14 10:23 | PM.DS ---
DS: Admitting Diagnosis Admitting Diagnosis GI bleed DS: Discharge Diagnosis Discharge Diagnosis (1) Hematemesis: Code(s): K92.0 - Hematemesis Status: Acute Assessment and Plan: -EGD 01/11/21 which showed significant bleeding and a large amount of clotted blood as well as red blood in the gastric cardia and in the fundus. This blood was suctioned and removed but visibility was poor due to the amount of blood. The GI doctor, Dr. Guevara did inject epinephrine to the area to help slow down the bleeding. Repeat EGD 01/12/21 showed a small dillon-valladares tear that was not bleeding with moderate gastritis with shallow small ulcers. -hgb today 7.9 ans stable -Pt received 3u of PRBC during his stay -Continue PPI, hold aspirin and plavix as stated below. He is to call his commercial carpet installer to review this with him to see if he needs to start it sooner. -Pt was not accepted to [facility] although an attempt was made. discussed with family that he would only be transferred if there is something we cannot do here that [facility] could do (per [place] accepting team). (2) Fluid overload: Code(s): E87.70 - Fluid overload, unspecified Status: Acute Assessment and Plan: Pt is +[phone] so far this stay due to IV fluids and blood (he also lost about 3u of blood) -no that he is stable and bp has improved, lasix was started -although he was not completely euvolemic, pt had no SOB and felt great. He really wanted to discharge. I called his pcp and spoke with the LEVY and she agreed to see him in a few days and I have sent the patient home with his home PRN lasix and told him to take it for the next 4 days and f/u with his pcp. He agreed. (3) CAD (coronary artery disease): Code(s): I25.10 - Atherosclerotic heart disease of [place] coronary artery without angina pectoris Status: Acute Assessment and Plan: With stenting in 2012 -hold plavix as stated below -no CP -EKG reviewed, no abnormalities (4) HLD (hyperlipidemia): Code(s): E78.5 - Hyperlipidemia, unspecified Status: Acute Assessment and Plan: Continue atorvastatin -s/p stenting to the carotids (5) ANNALISA (obstructive sleep apnea): Code(s): G47.33 - Obstructive sleep apnea (adult) (pediatric) Status: Acute Assessment and Plan: Continue cpap (6) Episode of syncope: Code(s): R55 - Syncope and collapse Status: Acute Assessment and Plan: Noted in the ER when he was vomiting -could be vasovagal, pt had pre-syncopal symptoms or from blood loss -no ekg abnormalities -no reoccurance (7) Acute blood loss anemia: Code(s): D62 - Acute posthemorrhagic anemia Status: Acute Assessment and Plan: As above s/p 2 units o blood 01/11/21 and another 1 unit 01/13/21 (8) GIB (gastrointestinal bleeding): Code(s): K92.2 - Gastrointestinal hemorrhage, unspecified Status: Acute Assessment and Plan: As above (9) Dillon-Valladares tear: Code(s): K22.6 - Gastro-esophageal laceration-hemorrhage syndrome Status: Acute Assessment and Plan: as above DS: Summary Hospital Course Hospital Course: DOS 01/14/21 Patient is a 80-year-old male with history of coronary artery disease on aspirin and Plavix who presented emergency room for hematemesis. vitals in the ER were 97.0, pulse 69, respiratory rate 17, blood pressure 117/63, pulse ox 97 on room air. Initial hemoglobin 10.1, hematocrit 31.2. BMP within normal limits with the exception of BUN 46 likely due to GI bleed. patient had a syncopal episode in the ER and was admitted to the hospitalist service. He initially was doing well but then quickly became stable. His hemoglobin dropped by 3 units a couple of hours and the patient was hypotensive and very pale. He was placed in Trendelenburg and 2 units of blood were ordered. GI was consulted and came in immediately and he
== END 2021-01-14 11:07 | disposition home or self-care (01) | DRG 369 ==
LOC: ANHED 03:08 → ANHIMU 05:54 → ANH3MED 01-14 09:33 → ANHIMU 01-16 15:35
PROVIDERS: Internal Medicine Gastroenterology; Physician Assistant; Admitting Provider Internal Medicine; Emergency Provider General Practice; Visit Provider Internal Medicine
PROC: 0DJ08ZZ Inspection of Upper Intestinal Tract, Via Natural or Artificial Opening Endoscopic (ICD-10-PCS; CPT 43235; principal; 2021-01-11 11:00)
DX: K22.6 Gastro-esophageal laceration-hemorrhage syndrome (principal); Q60.0 Renal agenesis, unilateral; D62 Acute posthemorrhagic anemia; Z68.42 Body mass index [BMI] 45.0-49.9, adult; I25.10 Atherosclerotic heart disease of native coronary artery without angina pectoris; K29.70 Gastritis, unspecified, without bleeding; I77.9 Disorder of arteries and arterioles, unspecified; R55 Syncope and collapse; Z79.82 Long term (current) use of aspirin; Z79.02 Long term (current) use of antithrombotics/antiplatelets; E78.5 Hyperlipidemia, unspecified; I10 Essential (primary) hypertension; I25.2 Old myocardial infarction; E66.9 Obesity, unspecified; Z95.5 Presence of coronary angioplasty implant and graft; Z87.891 Personal history of nicotine dependence; G47.33 Obstructive sleep apnea (adult) (pediatric); E87.70 Fluid overload, unspecified; K25.9 Gastric ulcer, unspecified as acute or chronic, without hemorrhage or perforation
CPT/HCPCS: 36415; 36430; 71045; 71250; 74150; 80048; 80053; 82607; 82746; 82948; 85014; 85018; 85025; 85027; 85055; 85610; 85730; 86850; 86900; 86901; 86920; 87081; 88305; 93005; 94660; 96361; 96365; 96366; 96375; 96376; 97110; 97116; 97161; 97165; 97530; 97535; 99285; A9270; C9113; G0378; J0171; J1940; J2405; J2704; J2765; J7030; J7050; J7060; J7120; P9016

== ENCOUNTER → 2021-11-03 10:13 | Outpatient (CLI) | payer MEDICARE, SELFPAY ==
--- NOTE | ~2021-11-03 | XR_ITS ---
EXAMINATION: XR chest 2V 11/03/2021 10:31 INDICATION: Preop testing PROCEDURE: 2 view chest COMPARISON: Comparison to multiple prior studies sequentially, with oldest reviewed study dated 08/03. FINDINGS: The lungs are clear. The cardiomediastinal silhouette is within normal limits. There are no pleural effusions. There is no pneumothorax suspected. IMPRESSION: 1: NO ACUTE CARDIOPULMONARY DISEASE. Reviewed, dictated and finalized at location A.
== END ==
DX: Z01.818 Encounter for other preprocedural examination (principal)
CPT/HCPCS: 71046